=== PATIENT | male | born 1970 | race Native Hawaiian/Other Pacific Islander ===

== ENCOUNTER 2018-02-27 13:15 | Emergency (ER) | payer OTHER ==
[~2018-02-27] VITALS: Ht 193 cm; Wt 154.2 kg
[2018-02-27 13:20] VITALS: TEMP 97.7
[2018-02-27] MEDS ORDERED: LISI20TA11 PO (13:33)
[2018-02-27] MEDS ORDERED: INSU100I2 SC (13:33)
[2018-02-27] MEDS ORDERED: NOVOLOG100 UNIT/M SC (13:35)
[2018-02-27] MEDS ORDERED: METF500T PO (13:35)
[2018-02-27 13:36] LABS: PLATELET COUNT 196 K/uL (142-355)
[2018-02-27] MEDS ORDERED: AMBIEN5 MG PO (13:36)
[2018-02-27] MEDS ORDERED: OXYCODONE HCL15 MG PO (13:36)
[2018-02-27 13:47] LABS: POTASSIUM 5.1 mmol/L (3.6-5.2); SODIUM 137 mmol/L (136-145)
[2018-02-27 14:00] LABS: PARTIAL THROMBOPLASTIN TIME 22.5 SECONDS (24.5-33.6)
[2018-02-27 15:55] VITALS: BP 113/64
== END 2018-02-27 15:56 | disposition home or self-care (01) ==
LOC: ED 13:15
PROVIDERS: Emergency Medicine
DX: R07.89 Other chest pain (principal)
CPT/HCPCS: 36415; 80053; 82550; 82553; 84484; 85027; 85610; 85730; 93005; 96374; 99284; J2270

== ENCOUNTER 2018-09-05 15:55 | Outpatient (CLI) | payer OTHER ==
[~2018-09-05 15:55] MED LIST: AMBIEN5 MG PO; INSU100I2 SC; LISI20TA11 PO; METF500T PO; NOVOLOG100 UNIT/M SC; OXYCODONE HCL15 MG PO
[2018-09-05] MEDS ORDERED: GABA400C2 PO (19:37)
[2018-09-05] MEDS ORDERED: METF500T PO (19:38)
[2018-09-05] MEDS ORDERED: AMLODIPINE BESYLATE PO (19:40)
[2018-09-05] MEDS ORDERED: HYDR25TA60 PO (19:40)
[2018-09-05] MEDS ORDERED: HYDR-3182 PO (19:41)
[2018-09-05] MEDS ORDERED: ZESTRIL40 MG PO (19:43)
[2018-09-05] MEDS ORDERED: AMBIEN5 MG PO (22:39)
== END 2018-09-05 16:00 | disposition short-term general hospital (02) ==
LOC: AMB 15:55
DX: R07.89 Other chest pain (principal)
CPT/HCPCS: A0425; A0427

== ENCOUNTER 2018-09-05 16:04 | Observation (INO) | payer OTHER ==
[~2018-09-05] VITALS: Ht 193 cm; Wt 162.6 kg
[2018-09-05 16:16] VITALS: BP 174/80; TEMP 98.1
[2018-09-05 16:29] LABS: PLATELET COUNT 207 K/uL (142-355)
[2018-09-05 16:34] LABS: POTASSIUM 4.3 mmol/L (3.6-5.2); SODIUM 136 mmol/L (136-145)
[2018-09-05 17:29] LABS: PARTIAL THROMBOPLASTIN TIME 21.7 SECONDS (24.5-33.6)
[2018-09-05] MEDS ORDERED: GABA400C2 PO (19:37)
[2018-09-05] MEDS ORDERED: METF500T PO (19:38)
[2018-09-05] MEDS ORDERED: HYDR25TA60 PO (19:40)
[2018-09-05] MEDS ORDERED: AMLODIPINE BESYLATE PO (19:40)
[2018-09-05] MEDS ORDERED: HYDR-3182 PO (19:41)
[2018-09-05] MEDS ORDERED: ZESTRIL40 MG PO (19:43)
[2018-09-05 20:00] VITALS: BP 151/78; TEMP 97.9
[2018-09-05] MEDS ORDERED: AMBIEN5 MG PO (22:39)
[2018-09-06 00:20] VITALS: BP 135/58; TEMP 97.9
[2018-09-06 03:15] VITALS: BP 151/78; TEMP 97.9; Ht 193 cm; Wt 162.6 kg
[2018-09-06 04:01] VITALS: BP 112/53; TEMP 97.6
[2018-09-06 08:00] VITALS: BP 115/70; TEMP 98
[2018-09-06 12:00] VITALS: BP 129/66; TEMP 98
== END 2018-09-06 15:30 | disposition home or self-care (01) ==
LOC: ED 16:04 → MED/SURG 17:50
PROVIDERS: Student in an Organized Health Care Education/Training Program; ADMIT Internal Medicine
DX: R07.89 Other chest pain (principal); E11.42 Type 2 diabetes mellitus with diabetic polyneuropathy; I10 Essential (primary) hypertension; Y92.89 Other specified places as the place of occurrence of the external cause; Z89.512 Acquired absence of left leg below knee; Z89.511 Acquired absence of right leg below knee; E66.01 Morbid (severe) obesity due to excess calories; I25.10 Atherosclerotic heart disease of native coronary artery without angina pectoris; S19.89XA Other specified injuries of other specified part of neck, initial encounter; X50.3XXA Overexertion from repetitive movements, initial encounter
CPT/HCPCS: 80053; 82550; 84484; 85027; 85610; 85730; 93005; 96374; 99220; 99284; G0378; J1815; J2270

== ENCOUNTER 2018-11-07 09:18 | Outpatient (CLI) | payer OTHER ==
[~2018-11-07 09:18] MED LIST changes: +AMLODIPINE BESYLATE PO; +GABA400C2 PO; +HYDR-3182 PO; +HYDR25TA60 PO; +ZESTRIL40 MG PO
== END 2018-11-07 23:59 | disposition home or self-care (01) ==
LOC: MRI 09:18
DX: M54.16 Radiculopathy, lumbar region (principal); M54.12 Radiculopathy, cervical region

== ENCOUNTER 2018-12-21 14:55 | Outpatient (CLI) | payer OTHER | END 2018-12-21 15:01 | disposition short-term general hospital (02) | LOC: AMB 14:55 | DX: E11.65 Type 2 diabetes mellitus with hyperglycemia (principal); R53.1 Weakness; R42 Dizziness and giddiness; R07.89 Other chest pain; W18.39XA Other fall on same level, initial encounter; Y93.89 Activity, other specified; Y92.018 Other place in single-family (private) house as the place of occurrence of the external cause | CPT/HCPCS: A0425; A0427 ==

== ENCOUNTER 2018-12-21 15:09 | Observation (INO) | payer OTHER ==
[~2018-12-21] VITALS: Ht 193 cm; Wt 152.5 kg
[2018-12-21 15:20] VITALS: BP 110/73
[2018-12-21 16:07] LABS: PLATELET COUNT 262 K/uL (142-355)
[2018-12-21 16:23] LABS: POTASSIUM 5.5 mmol/L (3.6-5.2); SODIUM 129 mmol/L (136-145)
[2018-12-21 20:18] VITALS: BP 188/106; TEMP 98; Ht 193 cm; Wt 152.5 kg
[2018-12-22] VITALS: BP 108/47; TEMP 98.5
[2018-12-22 04:00] VITALS: BP 115/71; TEMP 97.5
[2018-12-22 08:00] VITALS: BP 140/70; TEMP 97.8
[2018-12-22 08:55] LABS: PLATELET COUNT 217 K/uL (142-355)
[2018-12-22 09:05] LABS: POTASSIUM 4.8 mmol/L (3.6-5.2)
[2018-12-22 12:00] VITALS: BP 125/85; TEMP 98.1
== END 2018-12-22 14:07 | disposition home or self-care (01) ==
LOC: ED 15:09 → MED/SURG 18:07
PROVIDERS: Family Medicine; ADMIT Student in an Organized Health Care Education/Training Program
DX: E11.65 Type 2 diabetes mellitus with hyperglycemia (principal); R11.2 Nausea with vomiting, unspecified; R19.7 Diarrhea, unspecified; E66.01 Morbid (severe) obesity due to excess calories; I25.10 Atherosclerotic heart disease of native coronary artery without angina pectoris; I10 Essential (primary) hypertension; Z91.14 Patient's other noncompliance with medication regimen; Z89.512 Acquired absence of left leg below knee; Z89.511 Acquired absence of right leg below knee; E86.0 Dehydration; N28.9 Disorder of kidney and ureter, unspecified; E78.00 Pure hypercholesterolemia, unspecified; Z79.899 Other long term (current) drug therapy
CPT/HCPCS: 36415; 80048; 80053; 80307; 81000; 81002; 82948; 82962; 83036; 83735; 84484; 85027; 93005; 96360; 96365; 96366; 96372; 96374; 96375; 99220; 99284; G0378; J1815; J2270; J2550; J3475

== ENCOUNTER 2019-03-09 20:28 | Outpatient (CLI) | payer OTHER ==
[2019-03-10] MEDS ORDERED: TRAMADOL HYDROC50 MG PO (10:51)
[2019-03-10] MEDS ORDERED: PERCOCET1 TA3 PO (10:51)
[2019-03-10] MEDS ORDERED: CLON0.1T16 PO (10:53)
[2019-03-10] MEDS ORDERED: NEURONTIN 100M100 MG PO (10:54)
[2019-03-10] MEDS ORDERED: CYCL10TA35 PO (10:55)
[2019-03-10] MEDS ORDERED: DOCU100C10 PO (10:55)
== END 2019-03-09 20:33 | disposition short-term general hospital (02) ==
LOC: AMB 20:28
DX: R07.89 Other chest pain (principal); M54.2 Cervicalgia; M79.602 Pain in left arm; R42 Dizziness and giddiness; H53.8 Other visual disturbances; R73.9 Hyperglycemia, unspecified; R94.31 Abnormal electrocardiogram [ECG] [EKG]
CPT/HCPCS: A0425; A0427

== ENCOUNTER 2019-03-09 20:39 | Observation (INO) | payer OTHER ==
[~2019-03-09] VITALS: Ht 193 cm; Wt 158.0 kg
[2019-03-09 20:58] VITALS: BP 141/67; TEMP 98.1
[2019-03-09 21:22] LABS: PLATELET COUNT 244 K/uL (142-355)
[2019-03-09 21:36] LABS: POTASSIUM 4.5 mmol/L (3.6-5.2); SODIUM 134 mmol/L (136-145)
[2019-03-09 21:45] LABS: PARTIAL THROMBOPLASTIN TIME 23.1 SECONDS (24.5-33.6)
[2019-03-10] VITALS: BP 156/78; TEMP 97.7
[2019-03-10 00:34] VITALS: BP 156/78; TEMP 97.7; Ht 193 cm; Wt 158.0 kg
[2019-03-10 04:00] VITALS: BP 150/80; TEMP 97.7
[2019-03-10 08:00] VITALS: BP 138/60; TEMP 97.9
[2019-03-10] MEDS ORDERED: PERCOCET1 TA3 PO (10:51)
[2019-03-10] MEDS ORDERED: TRAMADOL HYDROC50 MG PO (10:51)
[2019-03-10] MEDS ORDERED: CLON0.1T16 PO (10:53)
[2019-03-10] MEDS ORDERED: NEURONTIN 100M100 MG PO (10:54)
[2019-03-10] MEDS ORDERED: CYCL10TA35 PO (10:55)
[2019-03-10] MEDS ORDERED: DOCU100C10 PO (10:55)
[2019-03-10 12:00] VITALS: BP 174/84; TEMP 97.9
== END 2019-03-10 15:11 | disposition home or self-care (01) ==
LOC: ED 20:39 → MED/SURG 22:30
PROVIDERS: Hospitalist; ADMIT Family Medicine
DX: R07.89 Other chest pain (principal); R06.02 Shortness of breath; R61 Generalized hyperhidrosis; R11.0 Nausea; I25.10 Atherosclerotic heart disease of native coronary artery without angina pectoris; I10 Essential (primary) hypertension; E78.49 Other hyperlipidemia; E11.9 Type 2 diabetes mellitus without complications; Z91.14 Patient's other noncompliance with medication regimen
CPT/HCPCS: 80053; 82550; 82948; 83880; 84484; 85027; 85379; 85610; 85730; 93005; 96372; 96374; 96375; 96376; 99220; 99284; G0378; J1650; J1815; J1885; J2270; J2405; Q9963

== ENCOUNTER 2019-04-02 19:45 | Outpatient (CLI) | payer OTHER ==
[~2019-04-02 19:45] MED LIST changes: +CLON0.1T16 PO; +CYCL10TA35 PO; +DOCU100C10 PO; +NEURONTIN 100M100 MG PO; +PERCOCET1 TA3 PO; +TRAMADOL HYDROC50 MG PO
== END 2019-04-02 19:48 | disposition short-term general hospital (02) ==
LOC: AMB 19:45
DX: R07.89 Other chest pain (principal); R06.02 Shortness of breath; R00.0 Tachycardia, unspecified; R11.0 Nausea
CPT/HCPCS: A0425; A0427

== ENCOUNTER 2019-04-02 19:51 | Emergency (ER) | payer OTHER ==
[~2019-04-02] VITALS: Ht 185.4 cm; Wt 163.3 kg
[2019-04-02 20:18] LABS: PLATELET COUNT 210 K/uL (142-355)
[2019-04-02 20:22] LABS: POTASSIUM 4.3 mmol/L (3.6-5.2); SODIUM 133 mmol/L (136-145)
[2019-04-02 20:30] VITALS: TEMP 98
[2019-04-02 22:30] VITALS: BP 139/72
== END 2019-04-02 22:32 | disposition short-term general hospital (02) ==
LOC: ED 19:51
PROVIDERS: Emergency Medicine
DX: I24.9 Acute ischemic heart disease, unspecified (principal); R00.0 Tachycardia, unspecified
CPT/HCPCS: 36415; 80053; 82550; 82553; 84484; 85027; 93005; 96372; 96374; 96375; 96376; 99284; J1644; J2270; J2405

== ENCOUNTER 2019-04-21 14:45 | Outpatient (CLI) | payer OTHER ==
[2019-04-21 15:19] LABS: PLATELET COUNT 236 K/uL (142-355)
[2019-04-21 15:34] LABS: POTASSIUM 5.2 mmol/L (3.6-5.2)
== END 2019-04-21 19:37 | disposition home or self-care (01) ==
LOC: LABW 14:45
PROVIDERS: Nurse Practitioner Adult Health
DX: I25.10 Atherosclerotic heart disease of native coronary artery without angina pectoris (principal); E11.65 Type 2 diabetes mellitus with hyperglycemia; R35.8 Other polyuria; E66.9 Obesity, unspecified; G47.00 Insomnia, unspecified; E55.9 Vitamin D deficiency, unspecified
CPT/HCPCS: 36415; 80053; 80061; 82306; 83036; 84439; 84443; 85027

== ENCOUNTER 2019-10-04 19:02 | Inpatient (IN) | payer OTHER ==
[~2019-10-04] VITALS: Ht 193 cm; Wt 158.5 kg
[2019-10-04 19:30] VITALS: BP 95/50; TEMP 99.7
[2019-10-04 19:54] LABS: PLATELET COUNT 200 K/uL (142-355)
[2019-10-04 20:00] LABS: POTASSIUM 4.7 mmol/L (3.6-5.2); SODIUM 128 mmol/L (136-145)
[2019-10-04 20:04] LABS: PARTIAL THROMBOPLASTIN TIME 23.2 SECONDS (24.5-33.6)
[2019-10-04 23:53] VITALS: BP 89/45; TEMP 100; Ht 193 cm; Wt 158.5 kg
[2019-10-05 04:00] VITALS: BP 94/50; TEMP 100.2
[2019-10-05 08:00] VITALS: BP 117/56; TEMP 101.5
[2019-10-05 12:00] VITALS: BP 102/45; TEMP 98.6
[2019-10-05 16:00] VITALS: BP 109/55; TEMP 98.4
[2019-10-05 20:00] VITALS: BP 114/50; TEMP 98.7
[2019-10-06] VITALS (7 sets, daily range): BP systolic 80–149; BP diastolic 36–82; TEMP 97.9–99.3
[2019-10-06 12:15] LABS: POTASSIUM 5.6 mmol/L (3.6-5.2)
[2019-10-06 13:13] LABS: PLATELET COUNT 157 K/uL (142-355)
[2019-10-07 04:00] VITALS: BP 129/55; TEMP 97.9
[2019-10-07 05:48] LABS: POTASSIUM 5.1 mmol/L (3.6-5.2)
[2019-10-07 05:51] LABS: PLATELET COUNT 153 K/uL (142-355)
[2019-10-07 08:00] VITALS: BP 146/66; TEMP 97.9
[2019-10-07 12:00] VITALS: BP 148/73; TEMP 98.2
[2019-10-07] MEDS ORDERED: CHOL4POW11 PO (15:07)
[2019-10-07 16:00] VITALS: BP 145/60; TEMP 98.1
[2019-10-07 19:59] VITALS: BP 146/68; TEMP 98.1
[2019-10-07 23:47] VITALS: BP 134/78; TEMP 99
[2019-10-08 04:00] VITALS: BP 139/73; TEMP 98.9
[2019-10-08 08:00] VITALS: BP 186/77; TEMP 97.8
== END 2019-10-08 12:00 | disposition home or self-care (01) | DRG 371 ==
LOC: ED 19:02 → MED/SURG 21:18
PROVIDERS: Internal Medicine; ADMIT Hospitalist
DX: A04.5 Campylobacter enteritis (principal); A41.89 Other specified sepsis; N17.8 Other acute kidney failure; E87.1 Hypo-osmolality and hyponatremia; I95.89 Other hypotension; I25.10 Atherosclerotic heart disease of native coronary artery without angina pectoris; I10 Essential (primary) hypertension; E78.49 Other hyperlipidemia; I73.89 Other specified peripheral vascular diseases; E11.9 Type 2 diabetes mellitus without complications; Z89.512 Acquired absence of left leg below knee; Z89.511 Acquired absence of right leg below knee; R07.89 Other chest pain; G89.4 Chronic pain syndrome; E87.5 Hyperkalemia
CPT/HCPCS: 36415; 80048; 80053; 81000; 81002; 82550; 82570; 83880; 84300; 84484; 85007; 85027; 85610; 85730; 87015; 87045; 87502; 87635; 87651; 87899; 93005; 94760; 96360; 96365; 96372; 96374; 96375; 96376; 99284; J0456; J1650; J1815; J2270; J2405; J3490; U00003

== ENCOUNTER 2020-10-07 17:17 | Observation (INO) | payer OTHER ==
[~2020-10-07] VITALS: Ht 193 cm; Wt 165.6 kg
[2020-10-07 17:17] VITALS: BP 121/56; TEMP 98.4
[~2020-10-07 17:17] MED LIST changes: +CHOL4POW11 PO
[2020-10-07 17:54] LABS: POTASSIUM 4.4 mmol/L (3.6-5.2); SODIUM 136 mmol/L (136-145)
[2020-10-07 17:56] LABS: PARTIAL THROMBOPLASTIN TIME 22.3 SECONDS (24.5-33.6)
[2020-10-07 18:16] LABS: PLATELET COUNT 263 K/uL (142-355)
[2020-10-07 19:00] VITALS: BP 109/71
[2020-10-07 20:00] VITALS: BP 104/80
[2020-10-08] VITALS: BP 115/50; TEMP 98
[2020-10-08 03:51] VITALS: BP 128/79; TEMP 98.1; Ht 193 cm; Wt 165.6 kg
[2020-10-08] MEDS ORDERED: ZESTRIL40 MG PO (04:51)
[2020-10-08] MEDS ORDERED: SIMV40TA57 PO (04:52)
[2020-10-08] MEDS ORDERED: GABA100C2 PO (04:53)
[2020-10-08] MEDS ORDERED: METFORMIN HCL500 M1 PO (04:54)
[2020-10-08] MEDS ORDERED: MOBIC15 MG PO (04:55)
[2020-10-08] MEDS ORDERED: AMBIEN5 MG PO (04:56)
[2020-10-08] MEDS ORDERED: HYDROCO/APAP1 T14 PO (04:57)
[2020-10-08] MEDS ORDERED: AMIT25TA22 PO (04:58)
[2020-10-08] MEDS ORDERED: GABA300C2 PO (04:59)
[2020-10-08] MEDS ORDERED: LANTUS SOL100 UNIT/M SC (05:01)
[2020-10-08] MEDS ORDERED: NOVOLOG100 UNIT/M SC (05:02)
[2020-10-08] MEDS ORDERED: SPIRIVA HANDIH18 MCG INH (06:15)
[2020-10-08 08:00] VITALS: BP 110/61; TEMP 97.5
[2020-10-08 09:53] LABS: POTASSIUM 4.4 mmol/L (3.6-5.2); SODIUM 138 mmol/L (136-145)
[2020-10-08 12:00] VITALS: BP 126/54; TEMP 98.2
== END 2020-10-08 13:05 | disposition home or self-care (01) ==
LOC: ED 17:24 → MED/SURG 20:00
PROVIDERS: ADMIT Emergency Medicine; ATTEND Internal Medicine Endocrinology, Diabetes & Metabolism
DX: M62.82 Rhabdomyolysis (principal); R07.89 Other chest pain; I25.10 Atherosclerotic heart disease of native coronary artery without angina pectoris; I10 Essential (primary) hypertension; I73.89 Other specified peripheral vascular diseases; G89.4 Chronic pain syndrome; E78.49 Other hyperlipidemia; G47.09 Other insomnia; E11.40 Type 2 diabetes mellitus with diabetic neuropathy, unspecified; E66.01 Morbid (severe) obesity due to excess calories; Z68.43 Body mass index [BMI] 50.0-59.9, adult; Z89.512 Acquired absence of left leg below knee; Z89.511 Acquired absence of right leg below knee; E11.65 Type 2 diabetes mellitus with hyperglycemia
CPT/HCPCS: 36415; 36600; 80048; 80053; 82550; 82553; 82805; 82948; 83880; 84484; 85027; 85379; 85610; 85730; 87635; 93005; 94760; 96360; 96366; 96372; 96374; 96375; 99220; 99284; G0378; J1815; J1885; J2270; J2405; U0003